=== PATIENT | male | born 1990 | race Caucasian/White ===

== ENCOUNTER 2017-02-22 18:57 | Emergency (ER) | payer OTHER ==
--- NOTE | 2017-02-22 19:16 | ER Document Report ---
ED Medical Screen (RME) - General Stated Complaint: EYE PROBLEM Notes: She complains of left eye irritation for a couple of days. Ports drainage from the eye. Also needs to be checked for an STD. Patient complains of burning with urination but no discharge. I have greeted and performed a rapid initial assessment of this patient. A comprehensive ED assessment and evaluation of the patient, analysis of test results and completion of the medical decision making process will be conducted by additional ED providers. Physical Exam - Vital signs Vitals: Temp Pulse Resp BP Pulse Ox 98.5 F 63 18 119/68 98 02/22/17 19:12 02/22/17 19:12 02/22/17 19:12 02/22/17 19:12 02/22/17 19:12 - HEENT Conjunctiva: Injected Extraocular movements intact: Yes Eyelashes: Normal Course - Vital Signs Vital signs: Temp Pulse Resp BP Pulse Ox 98.5 F 63 18 119/68 98 02/22/17 19:12 02/22/17 19:12 02/22/17 19:12 02/22/17 19:12 02/22/17 19:12
[2017-02-22 20:11] LABS: APPEARANCE,URINE CLEAR; BILIRUBIN,URINE NEGATIVE (NEGATIVE); GLUCOSE, URINE NEGATIVE (NEGATIVE); KETONES,URINE NEGATIVE (NEGATIVE); LEUKOCYTE ESTERASE,URINE NEGATIVE (NEGATIVE); NITRITE,URINE NEGATIVE (NEGATIVE); PROTEIN,URINE NEGATIVE (NEGATIVE); URINE SPECIFIC GRAVITY 1.016; UROBILINOGEN,URINE NEGATIVE mg/dL (<2.0)
--- NOTE | 2017-02-22 21:25 | ER Document Report ---
HPI - HPI Patient complains to provider of: pink left eye. 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 he just got back of 5 PM developed pinkeye with crusty drainage several days. He also started having urethral dysuria or painful urination at the urethra prior to leaving and was concerned that he had an STD because he had intercourse without a condom. While he was out in the field he became dehydrated which made the dysuria worse. Now that he has come back and is hydrated it is not as bad. He denies any penile swelling rash. Denies scrotal swelling or testicle tenderness. He is circumcised. Denies abdominal pain, suprapubic pain back pain. No fever or chills. Associated Symptoms: None Exacerbated by: Denies Relieved by: Denies Similar symptoms previously: No Recently seen / treated by doctor: No - ROS ROS below otherwise negative: Yes Systems Reviewed and Negative: Yes All other systems reviewed and negative - DERM Skin Color: [place] Past Medical History - General Information source: Patient - Social History Smoking Status: Never Smoker Chew tobacco use (# tins/day): No Frequency of alcohol use: Occasional Drug Abuse: None Lives with: Alone Family History: Reviewed & Not Pertinent Patient has suicidal ideation: No Patient has homicidal ideation: No - Medical History Medical History: Negative Renal/ Medical History: Denies: Hx Peritoneal Dialysis Surgical Hx: Negative Vertical Provider Document - CONSTITUTIONAL Agree With Documented VS: Yes Exam Limitations: No Limitations - INFECTION CONTROL TRAVEL OUTSIDE OF THE [place] IN LAST 30 DAYS: No - HEENT HEENT: Atraumatic, Conjuctival Injection - left palpebral more than bulbar, no FB, no fluorescein uptake, PERRLA - NECK Neck: Supple, Lymphadenopathy-Left. negative: Lymphadenopathy-Right - RESPIRATORY O2 Sat by Pulse Oximetry: 98 Course - Re-evaluation Re-evalutation: 02/22/17 22:24 visual acuity 20/15 left, 20/2o right eye. 02/22/17 22:[address] Moreira for recommendations for the dysuria and she recommended Pyridium. UA, gonorrhea and Chlamydia are negative 02/22/17 22:32 - Vital Signs Vital signs: Temp Pulse Resp BP Pulse Ox 98.5 F 63 18 119/68 98 02/22/17 19:12 02/22/17 19:12 02/22/17 19:12 02/22/17 19:12 02/22/17 19:12 Discharge - Discharge Clinical Impression: left eye conjunctivitis, Dysuria Condition: Good Disposition: HOME, SELF-CARE Instructions: Conjunctivitis ([facility]) Additional Instructions: Polytrim eyedrops 1 drop left eye 4-6 times per day see your sick call on saturday to er if worse Please complete the patient satisfaction survey if you get one, and return it.. If you do not receive a survey, then you can go to the [facility] website, [email or web address] and place your comments about your very good care. Thank you very much. It was a pleasure being your medical provider today. Prescriptions: Phenazopyridine HCl [Pyridium 100 Mg Tablet] 100 mg PO TIDP PRN #10 tablet PRN Reason: Forms: Return to Work
[2017-02-22 21:26] LABS: CHLAM PCR NOT DETECTED (NOT DETECT)
[2017-02-22] MEDS ORDERED: PHENAZOPYRIDINE HCL 100 MG TABLET PO ONE (22:23)
[2017-02-22] MEDS ORDERED: POLYMYXIN B SULFATE/TMP OPH SOLN 10 ML OS ONE (22:23)
[2017-02-22] MEDS ORDERED: POLYMYXIN B SULFATE/TMP OPH SOLN 10 ML ONE (23:08)
[2017-02-23 00:01] VITALS: BP 125/63
== END 2017-02-22 23:15 | disposition home or self-care (01) ==
LOC: ER 18:57
DX: H10.9 Unspecified conjunctivitis (principal); R30.0 Dysuria
CPT/HCPCS: 99283; 81001; 87491; 87591; J3490 ×2